=== PATIENT | female | born 1945 | race Caucasian/White ===

== ENCOUNTER 2017-11-16 12:51 | Emergency (ER) | payer MEDICARE ==
[2017-11-16] MEDS ORDERED: Ketorolac Tromethamine 30 MG/ML VIAL ONE (13:45)
--- NOTE | 2017-11-16 13:50 | CT ---
CT HEAD NONCONTRAST DATE: 11/16/17 HISTORY: Fall. Head injury. FINDINGS: There is no evidence of acute intracranial hemorrhage or infarct. 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 There is no mass effect or shift of midline structures. Ventricles appear normal in size, shape, and position. Visuali zed paranasal sinuses remain well aerated. Comminuted impaction of the nasal bones is favored to repr esent an acute fracture. Globes are intact. IMPRESSION: 1. No acute intracranial abnormalities are demonstrated. 2. Comminuted, slightly impacted nasal bone fracture, favored to be acute. POS: [facility]
== END 2017-11-16 14:12 | disposition home or self-care (01) ==
LOC: NAV ERS 12:51
DX: S06.9X1A Unspecified intracranial injury with loss of consciousness of 30 minutes or less, initial encounter (principal); S02.2XXA Fracture of nasal bones, initial encounter for closed fracture; S00.212A Abrasion of left eyelid and periocular area, initial encounter; S00.81XA Abrasion of other part of head, initial encounter; S80.211A Abrasion, right knee, initial encounter; I10 Essential (primary) hypertension; Z79.899 Other long term (current) drug therapy; W01.10XA Fall on same level from slipping, tripping and stumbling with subsequent striking against unspecified object, initial encounter
CPT/HCPCS: 70450; 96372; J1885